=== PATIENT | female | born 1950 | race Caucasian/White ===

== ENCOUNTER → 2018-06-14 | Outpatient (REF) | LOC: ZLAB.WCH 16:05 | DX: Z01.89 Encounter for other specified special examinations (principal) ==

== ENCOUNTER → 2018-06-22 | Outpatient (REF) | LOC: ZLAB.WCH 16:18 | DX: Z01.89 Encounter for other specified special examinations (principal) ==

== ENCOUNTER → 2018-06-28 | Outpatient (REF) | LOC: ZLAB.WCH 16:08 | DX: Z01.89 Encounter for other specified special examinations (principal) ==

== ENCOUNTER → 2018-07-05 | Outpatient (REF) | LOC: ZLAB.WCH 15:59 | DX: Z01.89 Encounter for other specified special examinations (principal) ==

== ENCOUNTER → 2018-07-12 | Outpatient (REF) | LOC: ZLAB.WCH 15:19 | DX: Z01.89 Encounter for other specified special examinations (principal) ==

== ENCOUNTER → 2021-02-27 | Outpatient (CLI) | payer MEDICARE, OTHER | LOC: MHCPAIN 08:59 | DX: M47.816 Spondylosis without myelopathy or radiculopathy, lumbar region (principal); M53.3 Sacrococcygeal disorders, not elsewhere classified; M54.16 Radiculopathy, lumbar region | CPT/HCPCS: G0463 ==

== ENCOUNTER → 2021-03-12 | Outpatient (CLI) | payer MEDICARE, OTHER | LOC: MHCPAIN 14:06 | DX: M47.817 Spondylosis without myelopathy or radiculopathy, lumbosacral region (principal); M53.3 Sacrococcygeal disorders, not elsewhere classified; M54.16 Radiculopathy, lumbar region | CPT/HCPCS: J1100; Q9967 ==

== ENCOUNTER → 2021-03-27 | Outpatient (CLI) | payer MEDICARE, OTHER | LOC: MHCPAIN 10:28 | DX: M47.816 Spondylosis without myelopathy or radiculopathy, lumbar region (principal); M53.3 Sacrococcygeal disorders, not elsewhere classified; G89.29 Other chronic pain | CPT/HCPCS: G0463 ==

== ENCOUNTER → 2021-04-11 | Outpatient (CLI) | payer MEDICARE, OTHER | LOC: MHCPAIN 08:26 | DX: M47.817 Spondylosis without myelopathy or radiculopathy, lumbosacral region (principal); M53.3 Sacrococcygeal disorders, not elsewhere classified | CPT/HCPCS: G0260; J1040; Q9967 ==

== ENCOUNTER → 2021-05-07 | Outpatient (CLI) | payer MEDICARE, OTHER | LOC: MHCPAIN 09:02 | DX: M47.817 Spondylosis without myelopathy or radiculopathy, lumbosacral region (principal); M53.3 Sacrococcygeal disorders, not elsewhere classified; M54.50 Low back pain, unspecified; G35 Multiple sclerosis | CPT/HCPCS: G0463 ==

== ENCOUNTER → 2021-06-13 | Outpatient (CLI) | payer MEDICARE, OTHER | LOC: MHCPAIN 09:08 | DX: M47.817 Spondylosis without myelopathy or radiculopathy, lumbosacral region (principal); M53.3 Sacrococcygeal disorders, not elsewhere classified; M54.50 Low back pain, unspecified | CPT/HCPCS: G0463 ==

== ENCOUNTER → 2021-06-25 | Outpatient (CLI) | payer MEDICARE, OTHER | LOC: COL.RAD 13:35 | DX: M47.896 Other spondylosis, lumbar region (principal); M51.36 Other intervertebral disc degeneration, lumbar region; M43.16 Spondylolisthesis, lumbar region ==

== ENCOUNTER → 2021-06-25 | Outpatient (CLI) | payer MEDICARE, OTHER | LOC: MHCPAIN 12:44 | DX: M47.817 Spondylosis without myelopathy or radiculopathy, lumbosacral region (principal); M53.3 Sacrococcygeal disorders, not elsewhere classified; M54.16 Radiculopathy, lumbar region | CPT/HCPCS: G0463 ==

== ENCOUNTER → 2021-07-08 | Outpatient (CLI) | payer MEDICARE, OTHER | LOC: MHCPAIN 13:20 | DX: M47.896 Other spondylosis, lumbar region (principal); M47.816 Spondylosis without myelopathy or radiculopathy, lumbar region; M53.3 Sacrococcygeal disorders, not elsewhere classified; M54.16 Radiculopathy, lumbar region | CPT/HCPCS: J1040; J1100; Q9967 ==

== ENCOUNTER → 2021-07-29 | Outpatient (CLI) | payer MEDICARE, OTHER | LOC: MHCPAIN 11:32 | DX: M47.816 Spondylosis without myelopathy or radiculopathy, lumbar region (principal); M54.50 Low back pain, unspecified; M53.3 Sacrococcygeal disorders, not elsewhere classified | CPT/HCPCS: G0463 ==